=== PATIENT | female | born 1950 | race Caucasian/White ===

== ENCOUNTER → 2016-10-03 | Day surgery (SDC) | payer OTHER ==
--- NOTE | 2016-10-02 08:52 | MH ---
cc: AJAY OLIVA DATE OF ADMISSION 10/03/2016 DATE OF 1950 CHIEF COMPLAINT Nasal lesion HISTORY This is a 65-year-old female who has a history of tonsillar carcinoma. Alicia was sent to the [facility] and had treatment with chemoradiation therapy. She developed a nasal lesion and has bilateral serous otitis. The nasal lesion appears to be more inflammatory and secondary to epistaxis, organized clot and inflammation. I was unable to remove this in the office. She is to undergo removal of an intranasal lesion to clear the nasopharynx and for biopsy. PAST MEDICAL HISTORY Significant for tonsillar carcinoma. ALLERGIES Includes SENSITIVITY TO CODEINE AND SENSITIVITY TO LATEX AND CONTACT TAPE. PHYSICAL EXAMINATION This is a well-developed, well-nourished female in no apparent distress. HEAD, EYES, EARS, NOSE, AND THROAT: Normocephalic, atraumatic. Extraocular motions intact. External ear canals clear. Lips, oral mucosa and oropharynx show no lesion. The nasopharynx shows soft tissue mass. CHEST: Clear to auscultation. HEART: Regular rate. ABDOMEN: Soft. EXTREMITIES: No lesion. NEUROLOGIC: Exam nonfocal. ASSESSMENT This is a 65-year-old female with a nasopharyngeal mass. PLAN Plan is for excision of new onset inflammatory obstructing lesion. The risks and benefits were discussed with the patient. The risks include, but are not limited to those of anesthesia, bleeding, unfavorable scarring, velopharyngeal insufficiency, dehydration, depression, abscess, voice change, bleeding, epistaxis. The patient states she understands and accepts the risks of the procedure. MD IRMA Rodriguez/FRANCOISE /7:43 AM /8:48 AM
[~2016-10-03] VITALS: Ht 160 cm; Wt 65.9 kg
[~2016-10-03] MED LIST: *morphine SULFATE 8 MG/ML PERIprocedure ONLY ONE; ACETAMINOPHEN 325MG/HYDROcodone 7.5MG/15ML UDC PO PRN; CHLORHEXIDINE GLUCONATE 2 % 1 PACK (2 CLOTHS) TOPICAL PRN; ENOX80P SQ; EPINEPHRINE HCL 30 MG/30 ML TOPICAL ONE; INSULIN HUMAN REGULAR 1,000 UNITS/10 ML VIAL SQ PRN; LACTATED RINGER'S 1000 ML IV PRN; LEVO50TA4 PO; LIOT5TAB3 PO; METOPROLOL TARTRATE 25 MG TAB PO PRN; ONDANSETRON HCL 4 MG/2 ML VIAL IV PUSH ONE; ONDANSETRON HCL 4 MG/2 ML VIAL ONE; PHENYLEPH/NS 1000 MCG/10 ML SYR IV ONE; POVIDONE IODINE 5% (ANTISEPSIS KIT) 4 APPLICATIONS EACH NARE PRN; PROPOFOL 200 MG/20 ML AMP IV ONE; SODIUM CHLORID 0.9% 500 ML IV PRN; fentaNYL CITRATE 250 MCG/5 ML AMP ONE
[2016-10-03 06:45] VITALS: BP 121/83; PULSE 87; RESP 20; TEMP 98.5; O2SAT 95
[2016-10-03 07:06] LABS: AUTOMATED NEUTROPHIL # 5.2 TH/MM3 (1.8-7.7); BASOPHIL % 0.8 % (0.0-2.0); EOSINOPHIL # 0.1 TH/MM3 (0-0.4); EOSINOPHIL % 1.3 % (0.0-4.0); HEMATOCRIT 33.9 % (35.0-46.0); HEMO FLAGS DIFF FINAL; LYMPHOCYTE # 0.3 TH/MM3 (1.0-4.8); MEAN CELL VOLUME 89.8 FL (80.0-100.0); MEAN CORPUSCULAR HEMOGLOBIN 29.9 PG (27.0-34.0); MEAN CORPUSCULAR HGB CONC 33.3 % (32.0-36.0); MONO % 7.2 % (0.0-8.0); NEUT % 85.7 % (16.0-70.0); PLATELET COUNT 204 TH/MM3 (150-450); RED BLOOD COUNT 3.78 MIL/MM3 (4.00-5.30); RED CELL DISTRIBUTION WIDTH 13.4 % (11.6-17.2)
--- NOTE | 2016-10-03 08:44 | MP ---
cc: AJAY OLIVA DATE OF SURGERY 10/03/2016 DATE OF 1950 INDICATIONS A 65-year-old female who has a nasopharyngeal lesion obstructing who had partial removal in my office setting, however, she was not able to tolerate this. She is brought to the Recovery Room for removal of a nasopharyngeal lesion. ANESTHESIA General PREOPERATIVE DIAGNOSIS Intranasal lesion POSTOPERATIVE DIAGNOSIS Intranasal lesion PROCEDURE Removal of intranasal lesion. SUMMARY The patient brought to the operating room, placed in the supine position, successfully placed under general anesthesia and prepared in the usual fashion for this procedure. The nose was topically decongested from a transnasal route approached. This appeared to be a partially organized clot and inflammatory lesion gently carefully removed using endoscopic and suction extraction with excision. The lesion arose from the posterior surface of the soft palate, midline, above the uvula in the center. Biopsy was sent. She tolerated procedure well. She was awakened and taken to the recovery in stable condition. MD IRMA Rodriguez/FRANCOISE /7:19 AM /8:38 AM FREDERICK
[2016-10-03 10:17] VITALS: BP 144/81; PULSE 105; RESP 18; TEMP 97.9; O2SAT 96
--- NOTE | 2016-10-03 20:15 | EKG ---
Date Performed: 10/03/2016 Time Performed: 07:00:57 PTAGE: 65 years EKG: Sinus rhythm NORMAL ECG NO PREVIOUS TRACING DOCTOR: Bambi Gomes Interpretating Date/Time 10/03/2016 20:13:59
== END | disposition home or self-care (01) ==
LOC: HSDC 05:20
PROVIDERS: ATTEND Specialist
DX: J34.89 Other specified disorders of nose and nasal sinuses (principal); Z85.818 Personal history of malignant neoplasm of other sites of lip, oral cavity, and pharynx; Z01.810 Encounter for preprocedural cardiovascular examination
CPT/HCPCS: 00160; 30117; 85025; 88305; 93005; J2270; J2370; J2405; J3010